=== PATIENT | male | born 2000 | race Caucasian/White ===

== ENCOUNTER 2021-03-20 15:09 | Emergency (ER) | payer OTHER ==
[~2021-03-20] VITALS: Ht 167.6 cm; Wt 65.8 kg
--- NOTE | 2021-03-20 16:15 | NUR ---
The patient is [id number], from [place], admits on using meth this morning. The patient is alert and oriented x2. Denies SI/HI. In room air and denies SOB. Respiration regular and unlabored. Denies pain. Will continue to monitor the patient.
--- NOTE | 2021-03-20 19:05 | NUR ---
Patient is resting comfortably in bed with eyes closed. Easily aroused. VSS
--- NOTE | 2021-03-20 20:15 | NUR ---
PT SITTING QUIETLY, ATTACHED TO MONITOR AND POX.
--- NOTE | 2021-03-20 20:45 | NUR ---
PT AWAKE, WALKING TO RESTROOM, NEEDS MET
--- NOTE | 2021-03-20 21:30 | NUR ---
Patient discharged to home in stable condition. Written and verbal after care instructions given. Patient verbalizes understanding of instruction. pT ambulatory with a steady gait
[2021-03-20 21:45] VITALS: BP 128/74
== END 2021-03-20 21:30 | disposition home or self-care (01) ==
LOC: ER 15:14
DX: F15.10 Other stimulant abuse, uncomplicated (principal)